=== PATIENT | male | born 1960 | race Caucasian/White ===

== ENCOUNTER 2018-05-21 02:53 | Emergency (ER) | payer SELFPAY ==
[~2018-05-21] VITALS: Ht 185.4 cm; Wt 80.7 kg
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
[2018-05-21 03:08] VITALS: BP 121/76
--- NOTE | 2018-05-21 03:08 | Emergency Room Report ---
History of Present Illness General Chief Complaint: Pain Source: Patient, [employer] Present Illness Allergies: Coded Allergies: No Known Allergies (Unverified , 05/21/18) Patient History Past Medical History: see triage record Reviewed Nursing Documentation: PMH: Agreed; PSxH: Agreed Nursing Documentation-PMH Past Medical History: No Stated History Physical Exam Vital Signs Date Time Temp Pulse Resp B/P (MAP) Pulse Ox O2 Delivery O2 Flow Rate FiO2 05/21/18 02:54 98.1 69 14 121/76 99 Room Air Medical Decision Making Last Vital Signs Date Time Temp Pulse Resp B/P (MAP) Pulse Ox O2 Delivery O2 Flow Rate FiO2 05/21/18 02:54 98.1 69 14 121/76 99 Room Air Gamaliel Lr MD May 21, 2018 03:08
[2018-05-21] MEDS: Ketorolac 60mg Inj IM ONE ×2 (03:15→03:36)
--- NOTE | 2018-05-21 03:15 | NUR ---
ED Nurse Note: Pt refused IM med, provide risk and benefit x 3 times still refused. ERMD aware.
[2018-05-21] MEDS ORDERED: IBUPROFEN600 MG ORAL (03:43)
[2018-05-21 03:53] VITALS: BP 135/82
--- NOTE | 2018-05-21 03:54 | NUR ---
ED Nurse Note: Pt cleared DC by SIMONA. Pt is AO x 4times, VSS, on room air no distress. Belongings given to [employer] officer. DC and meds instructions given to [employer] officer, officer understood well. ID bend removed. Pt walkled out unit with steady gait with ANAID.
[2018-05-21 03:55] VITALS: BP 135/82
== END 2018-05-21 03:57 | disposition home or self-care (01) ==
LOC: EMR 03:15
DX: M25.562 Pain in left knee (principal)
CPT/HCPCS: 99283